=== PATIENT | male | born 1990 | race African-American/Black ===

== ENCOUNTER 2022-03-05 08:08 | Outpatient (CLI) | payer OTHER, SELFPAY | END 2022-03-05 08:09 | disposition home or self-care (01) | LOC: ANHAUDIO 08:11 | PROVIDERS: Visit Provider Nurse Practitioner Family | DX: H90.3 Sensorineural hearing loss, bilateral (principal); R42 Dizziness and giddiness | CPT/HCPCS: 92537; 92540; 92546; 92557; 92567 ==